=== PATIENT | female | born 1995 | race Caucasian/White ===

== ENCOUNTER 2021-06-06 12:38 | Emergency (ER) | payer OTHER, SELFPAY ==
[2021-06-06] MEDS ORDERED: Acetaminophen 500 MG TAB ONE (14:12)
[2021-06-07 00:43] LABS: SARS-CoV-2 PCR by NAA Not Detected (NotDetected)
== END 2021-06-06 15:35 | disposition home or self-care (01) ==
LOC: CSHERS 12:38
DX: O99.891 Other specified diseases and conditions complicating pregnancy (principal); R50.9 Fever, unspecified; R52 Pain, unspecified; Z20.822 Contact with and (suspected) exposure to COVID-19; Z3A.17 17 weeks gestation of pregnancy; Z87.891 Personal history of nicotine dependence
CPT/HCPCS: 87804; 99283; U0003; U0005

== ENCOUNTER 2021-08-31 09:13 | Observation (INO) | payer OTHER ==
[2021-08-31] MEDS ORDERED: hydrALAZINE 20 MG/ML VIAL SLOW IVP PRN ×2 (11:59→16:29)
[2021-08-31] MEDS ORDERED: Acetaminophen/Codeine 30-300mg Tablet PO SCH (12:00)
[2021-08-31] MEDS ORDERED: Cyclobenzaprine 10 MG TAB PO SCH (12:00)
[2021-08-31 12:57] LABS: #Monocytes 0.4 10x3/uL (0.0-1.1); %Basophils 0.1 % (0.0-2.0); %Lymphocytes 8.6 % (18.0-47.0); %Monocytes 4.1 % (0.0-10.0); %Neutrophils 86.8 % (40.0-75.0); Hemoglobin 12.4 g/dL (12.0-15.5); Mean Corpuscular HGB CONC 34.7 g/dL (32.0-36.0); Mean Corpuscular Hemoglobin 30.6 pg (27.0-33.0); Mean Corpuscular Volume 88.1 fl (81.6-98.3); Mean Platelet Volume 11.4 fl (7.4-10.4); Platelet Count 268 10x3/uL (150-450); RBC Distribution Width 11.9 % (11.5-14.5); Red Blood Cell (RBC) Count 4.05 10x6/uL (3.90-5.03); White Blood Cell (WBC) Count 9.2 10x3/uL (3.5-10.5)
[2021-08-31 13:13] LABS: ALT (SGPT) 321 U/L (8-55); AST (SGOT) 161 U/L (5-34); Albumin 3.7 g/dL (3.5-5.0); Alkaline Phosphatase 167 U/L (40-110); Anion Gap 14 mmol/L (10-20); BUN (Urea Nitrogen) 6 mg/dL (7.0-18.7); Bilirubin, Total 1.4 mg/dL (0.2-1.2); Calc. Creatinine Clearance 0 mL/min (70-130); Calcium 9.6 mg/dL (7.8-10.44); Carbon Dioxide 22 mmol/L (22-29); Chloride 105 mmol/L (98-107); Glucose 94 mg/dL (70-105); Lipase 14 U/L (8-78); Potassium 4.4 mmol/L (3.5-5.1); Protein, Total 7.7 g/dL (6.0-8.3); Sodium 137 mmol/L (136-145)
[2021-08-31] MEDS ORDERED: Promethazine HCl 25 MG/ML VIAL IM PRN (16:29)
[2021-08-31] MEDS ORDERED: Ondansetron PF 4 MG/2 ML Vial IVP PRN (16:29)
[2021-08-31 18:42] VITALS: BMI 32.9
[2021-08-31 21:20] LABS: SARS-CoV-2 NAA Rapid Test Not Detected (NotDetected)
[2021-09-01] MEDS: Lactated Ringer's 1,000 ML IV SCH ×4 (00:15→20:09)
[2021-09-01 06:12] LABS: ALT (SGPT) 287 U/L (8-55); AST (SGOT) 116 U/L (5-34); Albumin 3.1 g/dL (3.5-5.0); Alkaline Phosphatase 137 U/L (40-110); Anion Gap 15 mmol/L (10-20); BUN (Urea Nitrogen) 7 mg/dL (7.0-18.7); Bilirubin, Total 0.5 mg/dL (0.2-1.2); Calc. Creatinine Clearance 240 mL/min (70-130); Calcium 8.9 mg/dL (7.8-10.44); Carbon Dioxide 20 mmol/L (22-29); Chloride 109 mmol/L (98-107); Globulin 3.1 g/dL (2.4-3.5); Glucose 87 mg/dL (70-105); Lipase 22 U/L (8-78); Potassium 3.6 mmol/L (3.5-5.1); Protein, Total 6.2 g/dL (6.0-8.3); Sodium 140 mmol/L (136-145)
[2021-09-01 11:08] LABS: #Monocytes 0.7 10x3/uL (0.0-1.1); #Neutrophils 4.3 10x3/uL (1.5-8.4); %Basophils 0.3 % (0.0-2.0); %Eosinophils 0.5 % (0.0-6.0); %Lymphocytes 22.6 % (18.0-47.0); %Monocytes 10.6 % (0.0-10.0); %Neutrophils 65.5 % (40.0-75.0); Hemoglobin 11.5 g/dL (12.0-15.5); Mean Corpuscular HGB CONC 34.5 g/dL (32.0-36.0); Mean Corpuscular Hemoglobin 30.7 pg (27.0-33.0); Mean Platelet Volume 11.3 fl (7.4-10.4); Platelet Count 216 10x3/uL (150-450); Red Blood Cell (RBC) Count 3.74 10x6/uL (3.90-5.03); White Blood Cell (WBC) Count 6.5 10x3/uL (3.5-10.5)
[2021-09-02] MEDS: Lactated Ringer's 1,000 ML IV SCH ×3 (04:04→22:01)
[2021-09-02 11:52] LABS: ALT (SGPT) 243 U/L (8-55); AST (SGOT) 71 U/L (5-34); Albumin 3.3 g/dL (3.5-5.0); Alkaline Phosphatase 127 U/L (40-110); Anion Gap 11 mmol/L (10-20); BUN (Urea Nitrogen) 6 mg/dL (7.0-18.7); Bilirubin, Total 0.5 mg/dL (0.2-1.2); Calc. Creatinine Clearance 248 mL/min (70-130); Calcium 9.3 mg/dL (7.8-10.44); Carbon Dioxide 23 mmol/L (22-29); Chloride 107 mmol/L (98-107); Globulin 3.2 g/dL (2.4-3.5); Glucose 73 mg/dL (70-105); Potassium 3.8 mmol/L (3.5-5.1); Protein, Total 6.5 g/dL (6.0-8.3); Sodium 137 mmol/L (136-145)
[2021-09-03] MEDS: Lactated Ringer's 1,000 ML IV SCH (04:41)
[2021-09-03 05:41] LABS: ALT (SGPT) 197 U/L (8-55); AST (SGOT) 55 U/L (5-34); Alkaline Phosphatase 125 U/L (40-110); Bilirubin, Direct 0.2 mg/dL (0.1-0.3); Bilirubin, Total 0.4 mg/dL (0.2-1.2); Protein, Total 6.3 g/dL (6.0-8.3)
[2021-09-03 10:25] VITALS: BP 116/61; TEMP 98.5
== END 2021-09-03 12:10 | disposition home or self-care (01) ==
LOC: CSHLD/OP 09:13 → CSHANTE 22:17
PROVIDERS: ADMIT Obstetrics & Gynecology; ATTEND Obstetrics & Gynecology
DX: O99.613 Diseases of the digestive system complicating pregnancy, third trimester (principal); K80.20 Calculus of gallbladder without cholecystitis without obstruction; K83.8 Other specified diseases of biliary tract; O99.891 Other specified diseases and conditions complicating pregnancy; N13.30 Unspecified hydronephrosis; R16.1 Splenomegaly, not elsewhere classified; Z3A.29 29 weeks gestation of pregnancy; Z88.1 Allergy status to other antibiotic agents; Z88.2 Allergy status to sulfonamides; Z20.822 Contact with and (suspected) exposure to COVID-19
CPT/HCPCS: 36415; 59025; 74181; 76705; 80053; 80076; 83690; 85025; 86850; 86900; 86901; G0378; J7120

== ENCOUNTER 2021-09-13 04:35 | Day surgery (SDC) | payer OTHER ==
[2021-09-13] MEDS ORDERED: hydrALAZINE 20 MG/ML VIAL SLOW IVP PRN (04:50)
[2021-09-13] MEDS ORDERED: Promethazine HCl 12.5 MG in Sodium Chloride 0.9% 50 ML IVPB PRN (04:55)
[2021-09-13] MEDS ORDERED: Butorphanol Tartrate 1 MG/ML VIAL SLOW IVP PRN (04:55)
[2021-09-13] MEDS ORDERED: Lactated Ringer's 1,000 ML IV SCH (05:00)
[2021-09-13 05:29] VITALS: BMI 32.2
[2021-09-13] MEDS ORDERED: Ondansetron PF 4 MG/2 ML Vial ONE (05:57)
[2021-09-13] MEDS ORDERED: Ondansetron PF 4 MG/2 ML Vial IVP SCH (06:00)
[2021-09-13 06:33] LABS: #Monocytes 0.8 10x3/uL (0.0-1.1); #Neutrophils 8.4 10x3/uL (1.5-8.4); %Basophils 0.1 % (0.0-2.0); %Eosinophils 0.3 % (0.0-6.0); %Lymphocytes 12.5 % (18.0-47.0); %Monocytes 7.5 % (0.0-10.0); %Neutrophils 79.3 % (40.0-75.0); Hemoglobin 12.5 g/dL (12.0-15.5); Mean Corpuscular HGB CONC 36.1 g/dL (32.0-36.0); Mean Corpuscular Hemoglobin 30.4 pg (27.0-33.0); Mean Corpuscular Volume 84.2 fl (81.6-98.3); Mean Platelet Volume 11.3 fl (7.4-10.4); Platelet Count 319 10x3/uL (150-450); RBC Distribution Width 11.3 % (11.5-14.5); Red Blood Cell (RBC) Count 4.11 10x6/uL (3.90-5.03); White Blood Cell (WBC) Count 10.6 10x3/uL (3.5-10.5)
[2021-09-13 07:11] LABS: ALT (SGPT) 350 U/L (8-55); AST (SGOT) 164 U/L (5-34); Albumin 3.5 g/dL (3.5-5.0); Alkaline Phosphatase 216 U/L (40-110); Anion Gap 22 mmol/L (10-20); BUN (Urea Nitrogen) 12 mg/dL (7.0-18.7); Bilirubin, Total 1.1 mg/dL (0.2-1.2); Calc. Creatinine Clearance 205 mL/min (70-130); Calcium 8.9 mg/dL (7.8-10.44); Carbon Dioxide 17 mmol/L (22-29); Chloride 105 mmol/L (98-107); Globulin 3.3 g/dL (2.4-3.5); Glucose 92 mg/dL (70-105); Lipase 28 U/L (8-78); Potassium 4.1 mmol/L (3.5-5.1); Protein, Total 6.8 g/dL (6.0-8.3); Sodium 140 mmol/L (136-145)
[2021-09-13] MEDS ORDERED: Piperacillin/Tazobactam 3.375 GM in Sodium Chloride 0.9% 100 ML IVPB SCH ×2 (08:00→12:00)
[2021-09-13] MEDS ORDERED: Butorphanol Tartrate 1 MG/ML VIAL ONE (09:43)
[2021-09-13] MEDS: Butorphanol Tartrate 1 MG/ML VIAL SLOW IVP PRN ×2 (13:59→15:47)
[2021-09-13 14:20] LABS: SARS-CoV-2 NAA Rapid Test Not Detected (NotDetected)
== END 2021-09-13 15:57 | disposition short-term general hospital (02) ==
LOC: CSHLD/OP 04:35
PROVIDERS: ATTEND Obstetrics & Gynecology
DX: O99.613 Diseases of the digestive system complicating pregnancy, third trimester (principal); K80.60 Calculus of gallbladder and bile duct with cholecystitis, unspecified, without obstruction; K83.8 Other specified diseases of biliary tract; O99.891 Other specified diseases and conditions complicating pregnancy; N13.30 Unspecified hydronephrosis; Z3A.31 31 weeks gestation of pregnancy; Z88.2 Allergy status to sulfonamides; Z20.822 Contact with and (suspected) exposure to COVID-19
CPT/HCPCS: 36415; 74181; 76705; 80053; 82150; 83690; 85025; J0595; J2405; J2543; J3490; U0002

== ENCOUNTER 2021-09-28 13:26 | Emergency (ER) | payer OTHER ==
[2021-09-28 14:32] LABS: #Monocytes 1.8 10x3/uL (0.0-1.1); #Neutrophils 14.6 10x3/uL (1.5-8.4); %Basophils 0.2 % (0.0-2.0); %Eosinophils 0.2 % (0.0-6.0); %Lymphocytes 6.4 % (18.0-47.0); %Monocytes 9.9 % (0.0-10.0); %Neutrophils 82.7 % (40.0-75.0); Hemoglobin 13.4 g/dL (12.0-15.5); Mean Corpuscular HGB CONC 35.4 g/dL (32.0-36.0); Mean Corpuscular Hemoglobin 30.2 pg (27.0-33.0); Mean Corpuscular Volume 85.3 fl (81.6-98.3); Mean Platelet Volume 12.5 fl (7.4-10.4); Platelet Count 170 10x3/uL (150-450); Red Blood Cell (RBC) Count 4.43 10x6/uL (3.90-5.03); White Blood Cell (WBC) Count 17.6 10x3/uL (3.5-10.5)
[2021-09-28 14:43] LABS: ALT (SGPT) 51 U/L (8-55); AST (SGOT) 18 U/L (5-34); Albumin 3.8 g/dL (3.5-5.0); Alkaline Phosphatase 173 U/L (40-110); Anion Gap 18 mmol/L (10-20); BUN (Urea Nitrogen) 17 mg/dL (7.0-18.7); Bilirubin, Total 0.8 mg/dL (0.2-1.2); Calc. Creatinine Clearance 0 mL/min (70-130); Carbon Dioxide 19 mmol/L (22-29); Chloride 98 mmol/L (98-107); Globulin 4.4 g/dL (2.4-3.5); Glucose 84 mg/dL (70-105); Lipase 10 U/L (8-78); Potassium 3.3 mmol/L (3.5-5.1); Protein, Total 8.2 g/dL (6.0-8.3); Sodium 132 mmol/L (136-145)
== END 2021-09-28 16:49 | disposition home or self-care (01) ==
LOC: CSHERS 13:26
DX: O99.283 Endocrine, nutritional and metabolic diseases complicating pregnancy, third trimester (principal); E86.0 Dehydration; Z3A.33 33 weeks gestation of pregnancy; Z87.891 Personal history of nicotine dependence; O99.891 Other specified diseases and conditions complicating pregnancy; R79.89 Other specified abnormal findings of blood chemistry
CPT/HCPCS: 80053; 83690; 85025; 96360

== ENCOUNTER 2021-10-17 10:45 | Inpatient (IN) | payer OTHER ==
[2021-10-17] MEDS ORDERED: Butorphanol Tartrate 1 MG/ML VIAL SLOW IVP PRN (10:55)
[2021-10-17] MEDS ORDERED: Ondansetron PF 4 MG/2 ML Vial IVP PRN (10:55)
[2021-10-17] MEDS ORDERED: hydrALAZINE 20 MG/ML VIAL SLOW IVP PRN (10:55)
[2021-10-17] MEDS ORDERED: Promethazine HCl 25 MG/ML VIAL IM PRN (10:55)
[2021-10-17] MEDS ORDERED: Dextrose 5%-Lactated Ringers 1,000 ML IV SCH (11:00)
[2021-10-17 12:36] LABS: Bilirubin Neg (Negative); Blood, Urine 25 (Negative); Clarity Cloudy (Clear); Glucose, Urine (Dipstick) Normal (Negative); Ketone, Urine Negative (Negative); Leukocyte 500 (Negative); Nitrite Negative (Negative); Protein, Urine (Dipstick) 30 mg/dl (Neg-Trace); Specific Gravity, Urine 1.005 (1.002-1.036); Urobilinogen Normal mg/dL (Less than 2)
[2021-10-17 12:38] LABS: Urine Culture Reflex No No
[2021-10-17 12:54] LABS: WBC/HPF 21-50 HPF (0-3)
[2021-10-17 12:55] LABS: Bacteria/HPF 3+ HPF (None Seen)
[2021-10-17] MEDS: Sodium Chloride 0.9% 1,000 ML IV SCH ×2 (13:11→22:38)
[2021-10-17] MEDS: cefTRIAXone\\ROCEPHIN 1 GM in Sodium Chloride 0.9% 100 ML IVPB SCH (13:11)
[2021-10-17 13:12] VITALS: BMI 32.9
[2021-10-17 13:58] LABS: #Eosinphils 0.1 10x3/uL (0.0-0.5); #Monocytes 1.3 10x3/uL (0.0-1.1); #Neutrophils 12.9 10x3/uL (1.5-8.4); %Basophils 0.2 % (0.0-2.0); %Eosinophils 0.3 % (0.0-6.0); %Lymphocytes 8.2 % (18.0-47.0); %Neutrophils 82.9 % (40.0-75.0); Hemoglobin 10.6 g/dL (12.0-15.5); Mean Corpuscular Hemoglobin 29.5 pg (27.0-33.0); Mean Corpuscular Volume 89.4 fl (81.6-98.3); Mean Platelet Volume 11.5 fl (7.4-10.4); Platelet Count 182 10x3/uL (150-450); RBC Distribution Width 13.8 % (11.5-14.5); Red Blood Cell (RBC) Count 3.59 10x6/uL (3.90-5.03); White Blood Cell (WBC) Count 15.5 10x3/uL (3.5-10.5)
[2021-10-17 16:36] LABS: HIV (1/2) Antibody/Antigen Non-Reactive (NonReactive); HIV 1/2 INDEX 0.07 S/CO (<1.00)
[2021-10-17] MEDS: Acetaminophen 500 MG TAB PO PRN (16:58)
[2021-10-18] MEDS ORDERED: Calcium Carbonate 500 MG ChewTAB PO PRN (00:46)
[2021-10-18] MEDS: Acetaminophen 500 MG TAB PO PRN (05:24)
[2021-10-18] MEDS: Sodium Chloride 0.9% 1,000 ML IV SCH ×2 (05:29→16:04)
[2021-10-18] MEDS ORDERED: Lidocaine 1% (PF) 30 ML VIAL SC PRN (11:24)
[2021-10-18] MEDS ORDERED: NS w/ Oxytocin 30 units 500 ML IV SCH ×2 (11:24)
[2021-10-18] MEDS: cefTRIAXone\\ROCEPHIN 1 GM in Sodium Chloride 0.9% 100 ML IVPB SCH (14:41)
[2021-10-18 17:03] LABS: ALT (SGPT) 12 U/L (8-55); AST (SGOT) 7 U/L (5-34); Albumin 2.9 g/dL (3.5-5.0); Alkaline Phosphatase 164 U/L (40-110); Anion Gap 16 mmol/L (10-20); BUN (Urea Nitrogen) 14 mg/dL (7.0-18.7); Bilirubin, Total 0.2 mg/dL (0.2-1.2); Calc. Creatinine Clearance 125 mL/min (70-130); Calcium 8.7 mg/dL (7.8-10.44); Carbon Dioxide 20 mmol/L (22-29); Chloride 109 mmol/L (98-107); Globulin 3.9 g/dL (2.4-3.5); Glucose 75 mg/dL (70-105); Potassium 4.5 mmol/L (3.5-5.1); Protein, Total 6.8 g/dL (6.0-8.3); Sodium 140 mmol/L (136-145)
[2021-10-18 17:22] LABS: Creatinine, Urine 31.62 mg/dL (47-110); Protein, Urine Random Quant Less than 10 mg/dL (1-14)
[2021-10-19] MEDS ORDERED: Betamet Acet/Betamet Na Ph 30 MG/5 ML VIAL IM SCH ×2 (13:00)
[2021-10-19] MEDS ORDERED: Famotidine/PF 20 mg/2ml Vial SLOW IVP PRN (13:24)
[2021-10-19] MEDS ORDERED: Bicitra 30 ML UDCUP PO PRN (13:24)
[2021-10-19] MEDS ORDERED: ceFAZolin 2 GM/Dextrose 50 ML 2 GM in Premix Bag 1 BAG IVPB SCH (13:30)
[2021-10-19] MEDS ORDERED: CEFAZOLIN 2 GM in Sodium Chloride 0.9% 100 ML IVPB SCH (15:00)
[2021-10-19] MEDS: cefTRIAXone\\ROCEPHIN 1 GM in Sodium Chloride 0.9% 100 ML IVPB SCH (15:08)
[2021-10-19] MEDS ORDERED: Morphine PF 10 MG/10 ML VIAL ONE (16:56)
[2021-10-19] MEDS ORDERED: Fentanyl 100 MCG/2 ML VIAL ONE (16:56)
[2021-10-19] MEDS ORDERED: Ketorolac Tromethamine 30 MG/ML VIAL ONE (16:57)
[2021-10-19] MEDS ORDERED: Dexamethasone 4 mg/ml Vial ONE (16:57)
[2021-10-19] MEDS ORDERED: Ondansetron PF 4 MG/2 ML Vial ONE (16:57)
[2021-10-19] MEDS ORDERED: Phenylephrine 40 MG/NS 250 ML 250 ML ONE (16:57)
[2021-10-19] MEDS ORDERED: Oxytocin 10 UNITS/ML VIAL ONE (16:57)
[2021-10-19] MEDS ORDERED: ePHEDrine Sulfate 50 MG/10 ML VIAL ONE (17:02)
[2021-10-19] MEDS ORDERED: Meperidine HCl/PF 25 MG/ML VIAL SLOW IVP PRN (19:11)
[2021-10-19] MEDS ORDERED: Naloxone HCl 0.4 mg/ml Vial IVP PRN ×2 (19:11)
[2021-10-19] MEDS ORDERED: diphenhydrAMINE 50 MG/ML VIAL IVP PRN (19:11)
[2021-10-19] MEDS ORDERED: Ondansetron HCl/PF 4 MG/2 ML Vial IVP PRN (19:11)
[2021-10-19] MEDS ORDERED: Moisturizing Cream (Eucerin) 113 GM JAR TOP PRN (19:11)
[2021-10-19] MEDS ORDERED: Naloxone HCl 0.4 mg/ml Vial IV PRN (19:11)
[2021-10-19] MEDS ORDERED: Ketorolac Tromethamine 30 MG/ML VIAL IVP PRN (19:11)
[2021-10-19] MEDS ORDERED: Promethazine HCl 25 MG/ML VIAL IM PRN ×2 (19:11→21:24)
[2021-10-19] MEDS ORDERED: Promethazine HCl 25 MG SUPP PR PRN (19:11)
[2021-10-19] MEDS ORDERED: Ondansetron PF 4 MG/2 ML Vial IVP PRN (19:11)
[2021-10-19] MEDS ORDERED: Fentanyl 100 MCG/2 ML VIAL SLOW IVP PRN (19:11)
[2021-10-19] MEDS ORDERED: Communication Order-Pharmacy FS SCH (19:15)
[2021-10-19] MEDS ORDERED: Ketorolac Tromethamine 30 MG/ML VIAL IVP SCH (19:15)
[2021-10-19] MEDS: Sodium Chloride 0.9% 1,000 ML IV SCH ×2 (19:22→22:45)
[2021-10-19] MEDS ORDERED: Simethicone Chewable 80 MG TAB PO PRN (21:24)
[2021-10-19] MEDS ORDERED: hydrALAZINE 20 MG/ML VIAL SLOW IVP PRN (21:24)
[2021-10-19] MEDS ORDERED: Misoprostol 200 MCG TAB PR PRN (21:24)
[2021-10-19] MEDS ORDERED: NS w/ Oxytocin 30 units 500 ML IV SCH (21:24)
[2021-10-19] MEDS ORDERED: Measles/Mumps/Rubella 10 MCG/0.5 ML VIAL SC ONE (21:24)
[2021-10-19] MEDS ORDERED: Lanolin Ointment 7 GM TUBE TOP PRN (21:24)
[2021-10-19] MEDS ORDERED: Boostrix 0.5 ML (Tdap) VIAL IM ONE (21:24)
[2021-10-19] MEDS ORDERED: Varicella virus, LIVE 0.5 ML VIAL SC ONE (21:24)
[2021-10-19] MEDS ORDERED: Methylergonovine 0.2 MG/ML VIAL IM PRN (21:24)
[2021-10-19] MEDS ORDERED: Zolpidem Tartrate 5 MG TAB PO PRN (21:24)
[2021-10-19] MEDS ORDERED: Bisacodyl 10 MG SUPP PR PRN (21:24)
[2021-10-19] MEDS ORDERED: Docusate 100 MG CAP PO SCH (21:30)
[2021-10-19] MEDS ORDERED: NS w/ Oxytocin 30 units 500 ML ONE (21:32)
[2021-10-20 05:52] LABS: Hemoglobin 10.7 g/dL (12.0-15.5); Mean Corpuscular HGB CONC 33.5 g/dL (32.0-36.0); Mean Corpuscular Hemoglobin 29.5 pg (27.0-33.0); Mean Corpuscular Volume 87.9 fl (81.6-98.3); Platelet Count 196 10x3/uL (150-450); RBC Distribution Width 13.4 % (11.5-14.5); Red Blood Cell (RBC) Count 3.63 10x6/uL (3.90-5.03); White Blood Cell (WBC) Count 9.4 10x3/uL (3.5-10.5)
[2021-10-20] MEDS ORDERED: PROPOFOL 0 ML ONE (06:17)
[2021-10-20] MEDS ORDERED: Fentanyl 100 MCG/2 ML VIAL ONE (06:17)
[2021-10-20] MEDS ORDERED: Succinylcholine 200 MG/10 ml SYRINGE FS ONE (06:17)
[2021-10-20] MEDS ORDERED: PHENYLEPHRINE-NS 100 MCG/ML 10 ML SYRINGE ONE (06:19)
[2021-10-20] MEDS ORDERED: Oxytocin 10 UNITS/ML VIAL ONE ×2 (06:19→06:33)
[2021-10-20] MEDS ORDERED: Ketorolac Tromethamine 30 MG/ML VIAL ONE (06:38)
[2021-10-20] MEDS ORDERED: Ondansetron PF 4 MG/2 ML Vial ONE (06:38)
[2021-10-20] MEDS ORDERED: Dexamethasone 4 mg/ml Vial ONE (06:38)
[2021-10-20] MEDS ORDERED: Midazolam HCl 2 mg/2 ml Vial ONE (06:40)
[2021-10-20] MEDS ORDERED: HYDROcodone/Acetaminophen 5/325 mg Tablet PO PRN ×2 (07:15)
[2021-10-20] MEDS: Prenatal Vitamin 1 TAB PO SCH (08:40)
[2021-10-20] MEDS: Docusate 100 MG CAP PO SCH ×2 (08:41→21:09)
[2021-10-20] MEDS: Ibuprofen 800 MG TAB PO SCH ×2 (14:01→21:09)
[2021-10-21] MEDS: Ibuprofen 800 MG TAB PO SCH ×2 (05:19→13:36)
[2021-10-21] MEDS: Prenatal Vitamin 1 TAB PO SCH (08:48)
[2021-10-21] MEDS: Docusate 100 MG CAP PO SCH (08:48)
[2021-10-21 20:20] VITALS: BP 130/84; TEMP 98.2
== END 2021-10-21 21:20 | disposition home or self-care (01) | DRG 787 ==
LOC: CSHLD/OP 10:45 → CSHLD 13:45 → CSHANTE 16:00 → CSHLD 10-18 11:28 → CSHPP 10-19 22:12
PROVIDERS: ADMIT Obstetrics & Gynecology; ATTEND Obstetrics & Gynecology
PROC: 10D00Z1 Extraction of Products of Conception, Low, Open Approach (ICD-10-PCS; principal; 2021-10-19)
DX: O41.03X0 Oligohydramnios, third trimester, not applicable or unspecified (principal); O23.03 Infections of kidney in pregnancy, third trimester; Z3A.36 36 weeks gestation of pregnancy; Z37.0 Single live birth; Z20.822 Contact with and (suspected) exposure to COVID-19; Z88.2 Allergy status to sulfonamides; Z88.8 Allergy status to other drugs, medicaments and biological substances; O76 Abnormality in fetal heart rate and rhythm complicating labor and delivery; O36.5930 Maternal care for other known or suspected poor fetal growth, third trimester, not applicable or unspecified
CPT/HCPCS: 51702; 76815; 76819; 80053; 81001; 82570; 84156; 85025; 85027; 86850; 86900; 86901; 87077; 87086; 87186; 87389; 99285; J0690; J0696; J0702; J1100; J1885; J2250; J2274; J2310; J2405; J2590; J2704; J3010; J3490; J7050; U0003; U0005